=== PATIENT | male | born 1955 | race Caucasian/White ===

== ENCOUNTER 2017-06-01 02:06 | Emergency (ER) | payer BC ==
[2017-06-01] MEDS ORDERED: Sodium Chloride 0.9% 10 ML Syringe FLUSH PRN (02:28)
--- NOTE | 2017-06-01 02:48 | EDM.PDOC ---
<Emily Monterroso - Last Filed: 06/01/17 04:08> ED HPI GENERAL MEDICAL PROBLEM - General Chief Complaint: Cardiovascular Problem Stated Complaint: HEART ATTACK? [id number] Time Seen by Provider: 06/01/17 02:45 Source of Information: Reports: Patient, Family, RN, RN Notes Reviewed - History of Present Illness INITIAL COMMENTS - FREE TEXT/NARRATIVE: Pt presents to ER with c/o chest pain. Pt states he was tossing and turning in bed. He states he was uncomfortable and awoke at 0100 with epigastric/sternal pain which he rated 6/10. He states he also had some left arm pain at that time as well. Pt took 1 nitro which did not help. Pt states pain has lessened since arrival, but still present. He states he has CKD, DM, Fibromyalgia, hx of [place], CABG. Onset: Today, Sudden Location: Reports: Chest Quality: Reports: Burning, Pressure Severity: Moderate Improves with: Reports: None Worsens with: Reports: None Associated Symptoms: Reports: No Other Symptoms Mid-Sternal Chest Pain Score (Numeric/FACES): 8 - Related Data Allergies Allergy/AdvReac Type Severity Reaction Status Date / Time No Known Allergies Allergy Verified 06/01/17 02:50 Home Meds: Home Meds Calcitriol [Rocaltrol] 0.5 mg PO DAILY 02/13/15 [History] Docusate Sodium 100 mg PO DAILY 02/13/15 [History] Ergocalciferol (Vitamin D2) [Vitamin D2] 1 tab PO ASDIRECTED 02/13/15 [History] Febuxostat [Uloric] 80 mg PO DAILY 02/13/15 [History] Insulin Glarg,Human.Rec.Analog [Lantus] 102 units SUBCUT DAILY 02/13/15 [History ] Insulin Lispro [HumaLOG] 1 units SUBCUT TIDAC 02/13/15 [History] Isosorbide Mononitrate [Imdur] 90 mg PO DAILY 02/13/15 [History] Lisinopril 2.5 mg PO ASDIRECTED 02/13/15 [History] Metoprolol Tartrate 100 mg PO BID 02/13/15 [History] Omeprazole 20 mg PO ASDIRECTED 02/13/15 [History] Pentoxifylline [TRENtal] 800 mg PO BID 02/13/15 [History] atorvaSTATin [Lipitor] 40 mg PO DAILY 02/13/15 [History] Clopidogrel [Plavix] 75 mg PO DAILY 02/18/15 [History] Chlorthalidone 25 mg PO DAILY 02/22/15 [History] Warfarin [Coumadin] 3 mg PO DAILY@1400 #14 tablet 02/22/15 [Rx] Past Medical History Other Respiratory History: ??PE Other Genitourinary History: renal disease Other Psychiatric History: stressful job - Past Surgical History Other Cardiovascular Surgeries/Procedures: cabg feb 2014 Social & Family History - Tobacco Use Smoking Status *Q: Never Smoker Second Hand Smoke Exposure: No - Recreational Drug Use Recreational Drug Use: No - Living Situation & Occupation Living situation: Reports: , with Family ED ROS GENERAL - Review of Systems Review Of Systems: ROS reveals no pertinent complaints other than HPI. ED EXAM, GENERAL - Physical Exam Exam: See Below Exam Limited By: No Limitations General Appearance: Alert, WD/WN, No Apparent Distress Eye Exam: Bilateral Eye: EOMI, Normal Inspection, PERRL Ears: Normal External Exam, Hearing Grossly Normal Nose: Normal Inspection Throat/Mouth: Normal Inspection, Normal Voice, No Airway Compromise Head: Atraumatic, Normocephalic Neck: Normal Inspection, Supple, Non-Tender, Full Range of Motion Respiratory/Chest: No Respiratory Distress, No Accessory Muscle Use, Chest Non- Tender, Decreased Breath Sounds, Crackles (bases bilat) Cardiovascular: Normal Peripheral Pulses, Regular Rate, Rhythm (distant), No Edema, No Gallop, No JVD, No Murmur, No Rub Peripheral Pulses: 2+: Radial (L), Radial (R), Femoral (L), Femoral (R) GI/Abdominal: Normal Bowel Sounds, Soft, Non-Tender, No Distention (Male) Exam: Deferred Rectal (Males) Exam: Deferred Back Exam: Normal Inspection, Full Range of Motion Extremities: Normal Inspection, Normal Range of Motion, Non-Tender, No Pedal Edema, Normal Capillary Refill Neurological: Alert, Oriented, CN II-XII Intact, Normal Cognition, Normal Gait, Normal Reflexes, No Motor/Sensory Deficits Psychiatric: Normal Affect, Normal Mood Skin Exam: Warm, Dry, Intact, Normal Color, No Rash Lymphatic: No Adenopathy EKG INTERPRETATION EKG Date: 06/01/17 Time: 02:12 Rhythm: NSR Rate (Beats/Min): 81 Comparison: Change From Previous EKG Course - Vital Signs Last Recorded V/S: Last Vital Signs Temp 36.6 C 06/01/17 02:45 Pulse 83 06/01/17 02:45 Resp 20 06/01/17 02:45 BP 178/64 H 06/01/17 02:45 Pulse Ox 94 L 06/01/17 02:45 - Orders/Labs/Meds Labs: Laboratory Tests 06/01/17 06/01/17 06/01/17 Range/Units 02:15 02:15 02:15 WBC 8.3 (5.0-10.0) 10^3/uL RBC 4.31 L (4.6-6.2) 10^6/uL Hgb 13.2 L (14.0-18.0) g/dL Hct 40.0 (40.0-54.0) % MCV 92.8 (80-100) fL MCH 30.6 (27.0-34.0) pg MCHC 33.0 (33.0-35.0) g/dL Plt Count 140 L (150-450) 10^3/uL Neut % (Auto) 61.0 (42.2-75.2) % Lymph % (Auto) 25.3 (20.5-50.1) % [place] % (Auto) 10.0 H (2-8) % Eos % (Auto) 3.5 H (1.0-3.0) % Baso % (Auto) 0.2 (0.0-1.0) % PT (9.0-12.0) SEC INR (0.9-1.2) APTT (22.0-34.0) SEC Sodium 137 (135-145) mmol/L Potassium 4.2 (3.6-5.0) mmol/L Chloride 104 (101-111) mmol/L Carbon Dioxide 22.0 (21.0-31.0) mmol/L Anion Gap 15.2 BUN 72 H (7-18) mg/dL Creatinine 4.7 H D (0.6-1.3) mg/dL Est Cr Clr Drug Dosing 16.61 mL/min Estimated GFR (MDRD) 13 BUN/Creatinine Ratio 15.31 Glucose 325 H (74-105) mg/dL Calcium 8.4 (8.4-10.2) mg/dl Total Bilirubin 0.3 (0.2-1.0) mg/dL AST 27 (10-42) IU/L ALT 26 (10-60) IU/L Alkaline Phosphatase 114 (42-121) IU/L Creatine Kinase 225 H (26-174) IU/L Creatine Kinase Index 2.8 H (0-2.4) % CK-MB (CK-2) 6.30 H (0.4-4.7) ng/mL Troponin I 0.04 H* (0.00-0.02) ng/ml B-Natriuretic Peptide (0-100) pg/ml Total Protein 7.5 (6.7-8.2) g/dl Albumin 3.6 (3.2-5.5) g/dl Globulin 3.9 Albumin/Globulin Ratio 0.92 Urine Color (YELLOW) Urine Appearance (CLEAR) Urine pH (5.0-9.0) Ur Specific [place] (1.005-1.030) Urine Protein (NEGATIVE) Urine Glucose (UA) (NEGATIVE) Urine Ketones (NEGATIVE) Urine Occult Blood (NEGATIVE) Urine Nitrite (NEGATIVE) Urine Bilirubin (NEGATIVE) Urine Urobilinogen (0.2-1.0) mg/dL Ur Leukocyte Esterase (NEGATIVE) Urine RBC /HPF Urine WBC (0-5/HPF) /HPF Ur Epithelial Cells /HPF Urine Bacteria (0-FEW/HPF) /HPF 06/01/17 06/01/17 06/01/17 Range/Units 02:15 02:15 02:15 WBC (5.0-10.0) 10^3/uL RBC (4.6-6.2) 10^6/uL Hgb (14.0-18.0) g/dL Hct (40.0-54.0) % MCV (80-100) fL MCH (27.0-34.0) pg MCHC (33.0-35.0) g/dL Plt Count (150-450) 10^3/uL Neut % (Auto) (42.2-75.2) % Lymph % (Auto) (20.5-50.1) % [place] % (Auto) (2-8) % Eos % (Auto) (1.0-3.0) % Baso % (Auto) (0.0-1.0) % PT 19.4 H (9.0-12.0) SEC INR 1.9 H (0.9-1.2) APTT 28.2 (22.0-34.0) SEC Sodium (135-145) mmol/L Potassium (3.6-5.0) mmol/L Chloride (101-111) mmol/L Carbon Dioxide (21.0-31.0) mmol/L Anion Gap BUN (7-18) mg/dL Creatinine (0.6-1.3) mg/dL Est Cr Clr Drug Dosing mL/min Estimated GFR (MDRD) BUN/Creatinine Ratio Glucose (74-105) mg/dL Calcium (8.4-10.2) mg/dl Total Bilirubin (0.2-1.0) mg/dL AST (10-42) IU/L ALT (10-60) IU/L Alkaline Phosphatase (42-121) IU/L Creatine Kinase (26-174) IU/L Creatine Kinase Index (0-2.4) % CK-MB (CK-2) (0.4-4.7) ng/mL Troponin I (0.00-0.02) ng/ml B-Natriuretic Peptide 227 H (0-100) pg/ml Total Protein (6.7-8.2) g/dl Albumin (3.2-5.5) g/dl Globulin Albumin/Globulin Ratio Urine Color (YELLOW) Urine Appearance (CLEAR) Urine pH (5.0-9.0) Ur Specific [place] (1.005-1.030) Urine Protein (NEGATIVE) Urine Glucose (UA) (NEGATIVE) Urine Ketones (NEGATIVE) Urine Occult Blood (NEGATIVE) Urine Nitrite (NEGATIVE) Urine Bilirubin (NEGATIVE) Urine Urobilinogen (0.2-1.0) mg/dL Ur Leukocyte Esterase (NEGATIVE) Urine RBC /HPF Urine WBC (0-5/HPF) /HPF Ur Epithelial Cells /HPF Urine Bacteria (0-FEW/HPF) /HPF 06/01/17 Range/Units 03:17 WBC (5.0-10.0) 10^3/uL RBC (4.6-6.2) 10^6/uL Hgb (14.0-18.0) g/dL Hct (40.0-54.0) % MCV (80-100) fL MCH (27.0-34.0) pg MCHC (33.0-35.0) g/dL Plt Count (150-450) 10^3/uL Neut % (Auto) (42.2-75.2) % Lymph % (Auto) (20.5-50.1) % [place] % (Auto) (2-8) % Eos % (Auto) (1.0-3.0) % Baso % (Auto) (0.0-1.0) % PT (9.0-12.0) SEC INR (0.9-1.2) APTT (22.0-34.0) SEC Sodium (135-145) mmol/L Potassium (3.6-5.0) mmol/L Chloride (101-111) mmol/L Carbon Dioxide (21.0-31.0) mmol/L Anion Gap BUN (7-18) mg/dL Creatinine (0.6-1.3) mg/dL Est Cr Clr Drug Dosing mL/min Estimated GFR (MDRD) BUN/Creatinine Ratio Glucose (74-105) mg/dL Calcium (8.4-10.2) mg/dl Total Bilirubin (0.2-1.0) mg/dL AST (10-42) IU/L ALT (10-60) IU/L Alkaline Phosphatase (42-121) IU/L Creatine Kinase (26-174) IU/L Creatine Kinase Index (0-2.4) % CK-MB (CK-2) (0.4-4.7) ng/mL Troponin I (0.00-0.02) ng/ml B-Natriuretic Peptide (0-100) pg/ml Total Protein (6.7-8.2) g/dl Albumin (3.2-5.5) g/dl Globulin Albumin/Globulin Ratio Urine Color Yellow (YELLOW) Urine Appearance Slightly cloudy (CLEAR) Urine pH 5.0 (5.0-9.0) Ur Specific [place] 1.015 (1.005-1.030) Urine Protein >=300 H (NEGATIVE) Urine Glucose (UA) 500 H (NEGATIVE) Urine Ketones Negative (NEGATIVE) Urine Occult Blood Small H (NEGATIVE) Urine Nitrite Negative (NEGATIVE) Urine Bilirubin Negative (NEGATIVE) Urine Urobilinogen 0.2 (0.2-1.0) mg/dL Ur Leukocyte Esterase Negative (NEGATIVE) Urine RBC 0-5 /HPF Urine WBC 0-5 (0-5/HPF) /HPF Ur Epithelial Cells Few /HPF Urine Bacteria Few (0-FEW/HPF) /HPF Meds: Medications Discontinued Medications Generic Name Dose Route Start Last Admin Trade Name Freq PRN Reason Stop Dose Admin Al Hydroxide/Mg Hydroxide 30 ml 06/01/17 03:53 06/01/17 04:19 Gi Cocktail PO 06/01/17 03:54 30 ml ONETIME ONE Administration Aspirin 324 mg 06/01/17 04:10 06/01/17 04:19 Aspirin PO 06/01/17 04:11 324 mg ONETIME ONE Administration Heparin Sodium/Dextrose 25,000 units in 500 mls @ 20 mls/hr 06/01/17 05:00 05:01 Heparin 25,000 Units In D5w 500 Ml IV 1,000 units/hr TITRATE JOSE CRUZ 20 mls/hr 1,000 UNITS/HR Administration Sodium Chloride 10 ml 06/01/17 02:28 06/01/17 05:01 Saline Flush FLUSH 10 ml ASDIRECTED PRN Administration Keep Vein Open - Radiology Interpretation Free Text/Narrative:: chest xray: Findings suggesting cardiac decompensation or volume overload. See rad report Departure - Departure Disposition: DC/Tfer to Acute Hospital 02 Clinical Impression: NSTEMI (non-ST elevated myocardial infarction) Referrals: [place] Andrew MD [Primary Care Provider] - Forms: ED Department Discharge <Daniel Cardenas - Last Filed: 06/03/17 01:34> Course - Re-Assessments/Exams Free Text/Narrative Re-Assessment/Exam: 06/01/17 04:22 Assumed care of patient. Pt currently CP free. Elevated troponin and also CK- MB. Aspirin given PO. Transfer [facility]. [facility] on medical diversion. Departure - Departure Time of Disposition: 04:27 Reason for Transfer *Q: Other ED Communication - Discussed Case With (1) Discussed Case With (1): Admitting Provider (Called and Spoke with Dr. Garg at [facility]. HPI ER COURSE findings and concerned were relayed to her verbally over the phone. Only orders for Heparin if INR if subtherapeutic at this time and accepted the patient in transfer to [facility].) - Assessment/Plan Assessment:: NSTEMI CRF-4 not on dialysis yet. Plan: Transfer to [facility] for further care and evaluation. [place] on Diversion at this time for medical patients. Pt not currently having chest pain.
[2017-06-01 02:49] VITALS: BP 178/64
[2017-06-01] MEDS ORDERED: GI Cocktail Oral Solution 30 ML PO ONE (03:53)
[2017-06-01] MEDS ORDERED: Aspirin 81 MG Tab.Chew PO ONE (04:10)
[2017-06-01] MEDS ORDERED: Heparin Sodium/D5W 25,000 UNITS/500 ML BAG IV SCH (05:00)
== END 2017-06-01 06:02 ==
LOC: DL.ED 02:06
DX: I21.4 Non-ST elevation (NSTEMI) myocardial infarction (principal); E11.22 Type 2 diabetes mellitus with diabetic chronic kidney disease; N18.9 Chronic kidney disease, unspecified; I25.2 Old myocardial infarction; Z95.1 Presence of aortocoronary bypass graft; Z79.4 Long term (current) use of insulin; Z79.01 Long term (current) use of anticoagulants; Z79.02 Long term (current) use of antithrombotics/antiplatelets; Z79.899 Other long term (current) drug therapy
CPT/HCPCS: 36415; 71045; 80053; 81001; 82550; 82553; 83880; 84484; 85025; 85610; 85730; 93005; 96365; 99285; A9270; J1644; J7050

== ENCOUNTER 2018-12-31 07:43 | Emergency (ER) | payer BC ==
[~2018-12-31 07:43] MED LIST: Sodium Chloride 0.9% 10 ML Syringe FLUSH PRN
[2018-12-31 07:59] VITALS: BP 118/67; PULSE 91
[2018-12-31 08:23] LABS: ANION GAP 25.8
--- NOTE | 2018-12-31 08:24 | CR ---
EXAMINATION: Chest 1V Frontal SEX: Male AGE: 63 years CLINICAL HISTORY: 63-year-old obese male history of heart disease and now chest pain. Comparison film 01 June 2017. INTERPRETATION: AP portable chest (mild rotation) 1. Sternotomy wires and external hide spreader leads. 2. Less than optimal inspiratory effort (pickwickian male) reveals no new signs of heart failure, lung mass or focal lobar pneumonia since 01 June 2017 film. Pulmonary vascularity less congested and normal for technique. 3. No new atelectasis/collapse. 4. No pneumothorax or free subdiaphragmatic air. 5. Reproducible asymmetric density left lung apex presumed to represent calcification costochondral cartilage first rib. CONCLUSION: No acute new cardiopulmonary abnormality.
[2018-12-31] MEDS ORDERED: Morphine 2 MG/ML Syringe IVPUSH ONE ×2 (08:36→08:53)
--- NOTE | 2018-12-31 08:42 | EDM.PDOC ---
ED HPI GENERAL MEDICAL PROBLEM - General Chief Complaint: Chest Pain Stated Complaint: CHEST PAIN Time Seen by Provider: 12/31/18 08:00 Source of Information: Reports: Patient, Family, RN, RN Notes Reviewed History Limitations: Reports: No Limitations - History of Present Illness INITIAL COMMENTS - FREE TEXT/NARRATIVE: Pt to ER with c/o midsternal chest pain that began at 0600. Patient was given Nitro and ASA by his prior to arrival. Patient has hx of NSTEMI in the past as well as CKD on PD. Patient reports for the past week he has had black tarry stools. States he has been getting iron infusions. Patient states he has had tingling in both arms today as well. Denies N/V/D. Admits to SOB, but no more than usual. 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: Other Medication(s) - Related Data Allergies Allergy/AdvReac Type Severity Reaction Status Date / Time Bleach (Sodium Hypochlorite) Allergy Itching Verified 12/31/18 07:52 Home Meds: Home Meds Docusate Sodium 100 mg PO PRN 02/13/15 [History] Febuxostat [Uloric] 80 mg PO DAILY 02/13/15 [History] Insulin Glarg,Human.Rec.Analog [Lantus] 132 units SUBCUT DAILY 02/13/15 [History ] Insulin Lispro [HumaLOG] 19 units SUBCUT TIDAC 02/13/15 [History] Isosorbide Mononitrate [Imdur] 60 mg PO DAILY 02/13/15 [History] Metoprolol Tartrate 100 mg PO BID 02/13/15 [History] Omeprazole 20 mg PO ASDIRECTED 02/13/15 [History] atorvaSTATin [Lipitor] 40 mg PO DAILY 02/13/15 [History] Clopidogrel [Plavix] 75 mg PO DAILY 02/18/15 [History] Warfarin [Coumadin] 3 mg PO DAILY@1400 #14 tablet 02/22/15 [Rx] B Complex W-C No.20/Folic Acid [Triphrocaps Softgel] 1 mg PO DAILY 03/21/18 [ History] Bumetanide 1 mg PO BID 03/21/18 [History] Cholecalciferol (Vitamin D3) [Vitamin D] 1,000 units PO DAILY 03/21/18 [History] Magnesium Oxide [Magnesium] 500 mg PO BID 03/21/18 [History] Sevelamer HCl [Renagel] 800 mg PO TIDMEALS 03/21/18 [History] Past Medical History HEENT History: Reports: Hard of Hearing Cardiovascular History: Reports: Bypass, High Cholesterol, Hypertension, [place], Stents Other Cardiovascular History: HX of A-fib Respiratory History: Reports: PE, Sleep Apnea Other Respiratory History: ??PE Gastrointestinal History: Reports: Chronic Constipation, GERD, Irritable Bowel Syndrome Genitourinary History: Reports: Dialysis, Peritoneal Other Genitourinary History: renal disease Musculoskeletal History: Reports: Fibromyalgia, Other (See Below) Neurological History: Reports: None, Neuropathy, Peripheral Psychiatric History: Reports: None Other Psychiatric History: stressful job Endocrine/Metabolic History: Reports: Diabetes, Type II, Obesity/BMI 30+ Hematologic History: Reports: None Immunologic History: Reports: None Oncologic (Cancer) History: Reports: None Dermatologic History: Reports: None - Infectious Disease History Infectious Disease History: Reports: None - Past Surgical History Head Surgeries/Procedures: Reports: None HEENT Surgical History: Reports: Tonsillectomy Other Cardiovascular Surgeries/Procedures: cabg feb 2014 GI Surgical History: Reports: Appendectomy Musculoskeletal Surgical History: Reports: Other (See Below) Other Musculoskeletal Surgeries/Procedures:: left leg plates and screws Social & Family History - Family History Family Medical History: Noncontributory - Tobacco Use Smoking Status *Q: Never Smoker Second Hand Smoke Exposure: No - Caffeine Use Caffeine Use: Reports: None - Recreational Drug Use Recreational Drug Use: No - Living Situation & Occupation Living situation: Reports: , with Family ED ROS GENERAL - Review of Systems Review Of Systems: ROS reveals no pertinent complaints other than HPI. ED EXAM, GENERAL - Physical Exam Exam: See Below Exam Limited By: No Limitations General Appearance: Alert, WD/WN, Moderate Distress, Obese Eye Exam: Bilateral Eye: EOMI, Normal Inspection Ears: Normal External Exam, Hearing Grossly Normal Nose: Normal Inspection Throat/Mouth: Normal Inspection, Normal Voice, No Airway Compromise Head: Atraumatic, Normocephalic Neck: Normal Inspection, Supple, Non-Tender Respiratory/Chest: No Respiratory Distress, No Accessory Muscle Use, Chest Non- Tender, Crackles (bases bilaterlly) Cardiovascular: Normal Peripheral Pulses, Regular Rate, Rhythm, No Gallop, No JVD, No Murmur, No Rub, Other (ankle/pedal edema +2-3) Peripheral Pulses: 2+: Radial (L), Radial (R) GI/Abdominal: Normal Bowel Sounds, Soft, Non-Tender (Male) Exam: Deferred Rectal (Males) Exam: Deferred Back Exam: Normal Inspection, Decreased Range of Motion Extremities: Normal Inspection, Non-Tender, No Pedal Edema, Normal Capillary Refill, Limited Range of Motion Neurological: Alert, Oriented, CN II-XII Intact, Normal Cognition, Normal Reflexes, No Motor/Sensory Deficits Psychiatric: Anxious Skin Exam: Warm, Dry, Intact, Normal Color, No Rash Lymphatic: No Adenopathy Course - Vital Signs Last Recorded V/S: Last Vital Signs Temp 97.3 F 12/31/18 07:58 Pulse 91 12/31/18 07:58 Resp 20 12/31/18 07:58 BP 118/67 12/31/18 07:58 Pulse Ox 100 12/31/18 07:58 - Orders/Labs/Meds Labs: Laboratory Tests 12/31/18 12/31/18 Range/Units 07:45 07:45 WBC 11.4 H (5.0-10.0) 10^3/uL RBC 2.49 L (4.6-6.2) 10^6/uL Hgb 8.2 L D (14.0-18.0) g/dL Hct 25.4 L (40.0-54.0) % MCV 102.0 H D (80-100) fL MCH 32.9 (27.0-34.0) pg MCHC 32.3 L (33.0-35.0) g/dL Plt Count 203 (150-450) 10^3/uL Neut % (Auto) 74.2 (42.2-75.2) % Lymph % (Auto) 14.4 L (20.5-50.1) % [place] % (Auto) 9.4 H (2-8) % Eos % (Auto) 1.8 (1.0-3.0) % Baso % (Auto) 0.2 (0.0-1.0) % Sodium 132 L (135-145) mmol/L Potassium 4.8 (3.6-5.0) mmol/L Chloride 91 L (101-111) mmol/L Carbon Dioxide 20.0 L (21.0-31.0) mmol/L Anion Gap 25.8 BUN 149 H D (7-18) mg/dL Creatinine 14.1 H D (0.6-1.3) mg/dL Est Cr Clr Drug Dosing 5.39 mL/min Estimated GFR (MDRD) 4 BUN/Creatinine Ratio 10.56 Glucose 172 H (74-105) mg/dL Calcium 8.7 (8.4-10.2) mg/dl Total Bilirubin 0.7 (0.2-1.0) mg/dL AST 19 (10-42) IU/L ALT 24 (10-60) IU/L Alkaline Phosphatase 65 (42-121) IU/L Troponin I 0.08 H* (0.00-0.02) ng/ml B-Natriuretic Peptide 382 H (0-100) pg/ml Total Protein 7.0 (6.7-8.2) g/dl Albumin 3.3 (3.2-5.5) g/dl Globulin 3.7 Albumin/Globulin Ratio 0.89 Meds: Medications Discontinued Medications Generic Name Dose Route Start Last Admin Trade Name Freq PRN Reason Stop Dose Admin Morphine Sulfate 2 mg 12/31/18 08:36 12/31/18 08:44 Morphine IVPUSH 12/31/18 08:37 2 mg ONETIME ONE Administration Morphine Sulfate 2 mg 12/31/18 08:53 12/31/18 08:59 Morphine IVPUSH 12/31/18 08:54 2 mg ONETIME ONE Administration Sodium Chloride 10 ml 12/31/18 07:39 12/31/18 07:56 Saline Flush FLUSH 10 ml ASDIRECTED PRN Administration Keep Vein Open - Radiology Interpretation Free Text/Narrative:: Chest xray: Less than optimal inspiratory effort No acute new cardiopulmonary abnormality See rad report - Re-Assessments/Exams Free Text/Narrative Re-Assessment/Exam: 12/31/18 08:58 Discussed patient case with Dr. Bronson who agreed to accept the patient for transfer to [facility] in [place]. Departure - Departure Time of Disposition: 09:21 Disposition: DC/Tfer to Acute Hospital 02 Reason for Transfer *Q: Other Condition: Fair Clinical Impression: NSTEMI (non-ST elevated myocardial infarction) DM (diabetes mellitus) Qualifiers: Diabetes mellitus type: type 2 Diabetes mellitus complication status: with kidney complications Diabetes mellitus complication detail: with chronic kidney disease Chronic kidney disease stage: stage 4 (severe) Qualified Code(s): E11.22 - Type 2 diabetes mellitus with diabetic chronic kidney disease Referrals: PCP,None [Primary Care Provider] - Forms: ED Department Discharge, Interfacility Transfer [facility]
== END 2018-12-31 09:42 ==
LOC: DL.ED 07:43
DX: I21.4 Non-ST elevation (NSTEMI) myocardial infarction (principal); I12.9 Hypertensive chronic kidney disease with stage 1 through stage 4 chronic kidney disease, or unspecified chronic kidney disease; N18.9 Chronic kidney disease, unspecified; E11.22 Type 2 diabetes mellitus with diabetic chronic kidney disease; K21.9 Gastro-esophageal reflux disease without esophagitis; E66.9 Obesity, unspecified; I48.91 Unspecified atrial fibrillation; Z99.2 Dependence on renal dialysis; Z90.49 Acquired absence of other specified parts of digestive tract; Z98.890 Other specified postprocedural states; Z79.4 Long term (current) use of insulin; Z79.01 Long term (current) use of anticoagulants; Z79.899 Other long term (current) drug therapy; Z88.8 Allergy status to other drugs, medicaments and biological substances
CPT/HCPCS: 36415; 71045; 80053; 82272; 83880; 84484; 85025; 93005; 96374; 99285; J2270